=== PATIENT | female | born 1975 | race Hispanic/Latino ===

== ENCOUNTER 2017-10-27 13:50 | Inpatient (IN) | payer MEDICAID ==
[~2017-10-27] VITALS: Ht 147.3 cm; Wt 35.8 kg
[~2017-10-27 13:50] MED LIST: ASPI-1181 PO; ATOR20TA65 PO; CLOP75TA32 PO; DULO30CA51 PO; ISOS30TA11 PO; VENL-63 PO; ZOLP10TA6 PO
[2017-10-27 14:16] LABS: BASOPHILS % (AUTO) 0.4 % (0.0-5.0); EOSINOPHILS % (AUTO) 0.8 % (0.0-8.0); HEMATOCRIT 36.1 % (36-48); LYMPHOCYTES % (AUTO) 12.9 % (21.0-51.0); MEAN CORPUSCULAR HGB CONC 35.5 g/dL (32.0-36.0); MONOCYTES % (AUTO) 4.4 % (3.0-13.0); NEUTROPHILS % (AUTO) 81.5 % (40.0-77.0); NUCLEATED RED BLOOD CELLS 0.1 % (0.0-0.19); PLATELET COUNT (AUTO) 193 K/uL (130-400); RED BLOOD CELL COUNT(AUTO) 3.88 MIL/uL (4.00-5.50); RED CELL DISTRIBUTION WIDTH 16.3 % (11.0-15.5); WHITE BLOOD COUNT (AUTO) 5.6 K/uL (4.8-10.8)
[2017-10-27 14:29] LABS: INR 1.04 (0.85-1.15); PARTIAL THROMBOPLASTIN TIME 26.1 SEC (26.3-35.5); PROTHROMBIN TIME 10.9 SEC (9.6-11.6)
[2017-10-27 14:43] LABS: ALBUMIN 3.7 g/dL (3.5-5.0); BILIRUBIN,TOTAL 1.1 mg/dL (0.2-1.0); CREATINE KINASE MB 1.1 ng/mL (0.5-3.6); CREATININE 0.6 mg/dL (0.5-1.5); TOTAL PROTEIN, SERUM 6.6 g/dL (6.0-8.3)
[2017-10-27 14:50] LABS: POTASSIUM 2.9 mmol/L (3.5-5.1)
[2017-10-27] MEDS ORDERED: NITROGLYCERIN 1GM/1 INCH PACKET TD ONE (16:18)
[2017-10-27] MEDS ORDERED: POTASSIUM CHLORIDE 10% ELIXIR 20 MEQ/15 ML UDCUP PO PRN (17:45)
[2017-10-27] MEDS ORDERED: LIDOCAINE HCL-MPF 1% 2ML VIAL IJ PRN (17:45)
[2017-10-27] MEDS ORDERED: POTASSIUM CHLORIDE 20MEQ/100ML 100 ML IV PRN (17:45)
[2017-10-27] MEDS ORDERED: POTASSIUM CHLORIDE 20 MEQ ERTAB PO PRN (17:45)
[2017-10-27] MEDS: NITROGLYCERIN 1GM/1 INCH PACKET TD SCH (18:00)
[2017-10-27] MEDS ORDERED: REGADENOSON 0.4 MG/5 ML PF SYG IVP SCH (18:00)
[2017-10-27] MEDS ORDERED: POTASSIUM CHLORIDE 20 MEQ ERTAB PO ONE (20:58)
[2017-10-27] MEDS ORDERED: ENOXAPARIN SODIUM 40 MG/0.4 ML SYRINGE SQ SCH (21:00)
[2017-10-27] MEDS ORDERED: POTASSIUM CHLORIDE 20MEQ/100ML 100 ML IV ONE (21:28)
[2017-10-27 23:05] LABS: CREATINE KINASE MB 0.8 ng/mL (0.5-3.6); CREATINE KINASE, TOTAL 57 U/L (21-232); MYOGLOBIN 31 ng/mL (10-92); TROPONIN I < 0.04 ng/mL (0.00-0.06)
[2017-10-27 23:42] VITALS: BP 100/61
[2017-10-27] MEDS ORDERED: POTASSIUM CHLORIDE 10 MEQ/TAB.SA PO ONE ×2 (23:59)
[2017-10-28] MEDS ORDERED: SODIUM CHLORIDE 0.9% 250 ML IV ONE (00:50)
[2017-10-28] MEDS: NITROGLYCERIN 1GM/1 INCH PACKET TD SCH ×2 (01:02→06:28)
[2017-10-28 03:30] VITALS: BP 89/55
[2017-10-28 03:55] LABS: BASOPHILS % (AUTO) 0.3 % (0.0-5.0); EOSINOPHILS % (AUTO) 2.2 % (0.0-8.0); HEMATOCRIT 33.1 % (36-48); LYMPHOCYTES % (AUTO) 38.5 % (21.0-51.0); MEAN CORPUSCULAR HEMOGLOBIN 32.1 pg (27.0-33.0); MEAN CORPUSCULAR HGB CONC 34.2 g/dL (32.0-36.0); MEAN CORPUSCULAR VOLUME 93.8 fL (79-99); MONOCYTES % (AUTO) 11.5 % (3.0-13.0); NEUTROPHILS % (AUTO) 47.5 % (40.0-77.0); NUCLEATED RED BLOOD CELLS 0.1 % (0.0-0.19); PLATELET COUNT (AUTO) 175 K/uL (130-400); RED BLOOD CELL COUNT(AUTO) 3.53 MIL/uL (4.00-5.50); RED CELL DISTRIBUTION WIDTH 16.3 % (11.0-15.5); WHITE BLOOD COUNT (AUTO) 3.1 K/uL (4.8-10.8)
[2017-10-28 04:22] LABS: CARBON DIOXIDE 23 mmol/L (21-32); CHLORIDE 105 mmol/L (101-111); CHOLESTEROL 127 mg/dL (<200); CREATINE KINASE MB 0.7 ng/mL (0.5-3.6); CREATINE KINASE, TOTAL 43 U/L (21-232); CREATININE 0.7 mg/dL (0.5-1.5); GLOMERULAR FILTR. RATE CALC 97 mL/min (>60); GLUCOSE,RANDOM 86 mg/dL (70-105); HDL CHOLESTEROL 48 mg/dL (35-85); LDL DIRECT 76 mg/dL (0-99); MYOGLOBIN 22 ng/mL (10-92); POTASSIUM 3.8 mmol/L (3.5-5.1); SODIUM SERUM 138 mmol/L (136-145); THYROID STIMULATING HORMONE 1.43 uIU/mL (0.36-3.74); TRIGLYCERIDES 81 mg/dL (30-200); TROPONIN I < 0.04 ng/mL (0.00-0.06); UREA NITROGEN, BLOOD 9 mg/dL (7-18)
[2017-10-28] MEDS ORDERED: OLAN15TA18 PO (05:45)
[2017-10-28] MEDS ORDERED: DULO60CA63 PO (05:45)
[2017-10-28] MEDS ORDERED: CLON0.5T12 PO (05:45)
[2017-10-28] MEDS ORDERED: ISOS10TA8 PO (05:57)
[2017-10-28] MEDS ORDERED: ISOS30TA6 PO (05:58)
[2017-10-28 07:00] VITALS: BP 83/46
[2017-10-28] MEDS ORDERED: CLOPIDOGREL BISULFATE 75 MG TAB PO SCH (09:00)
[2017-10-28] MEDS ORDERED: CLONAZEPAM 0.5 MG TABLET PO SCH (09:00)
[2017-10-28] MEDS ORDERED: ISOSORBIDE MONO 30MG TAB SR PO SCH ×2 (09:00→10:30)
[2017-10-28] MEDS ORDERED: OLANZAPINE 5 MG TAB PO SCH (09:00)
[2017-10-28] MEDS ORDERED: ASPIRIN 325 MG TABLET PO SCH (09:00)
[2017-10-28] MEDS ORDERED: DULOXETINE HCL 30 MG CAP PO SCH (09:00)
[2017-10-28] MEDS ORDERED: PANTOPRAZOLE SODIUM 40 MG TABLET.DR PO SCH (09:30)
[2017-10-28 11:00] VITALS: BP 95/56
[2017-10-28] MEDS ORDERED: REGADENOSON 0.4 MG/5 ML PF SYG IVP SCH (14:00)
[2017-10-28 16:30] VITALS: BP 106/72
[2017-10-28 18:24] LABS: HEMATOCRIT 34.8 % (36-48); MEAN CORPUSCULAR HEMOGLOBIN 31.6 pg (27.0-33.0); MEAN CORPUSCULAR HGB CONC 33.8 g/dL (32.0-36.0); MEAN CORPUSCULAR VOLUME 93.3 fL (79-99); PLATELET COUNT (AUTO) 189 K/uL (130-400); RED BLOOD CELL COUNT(AUTO) 3.73 MIL/uL (4.00-5.50); RED CELL DISTRIBUTION WIDTH 16.5 % (11.0-15.5); WHITE BLOOD COUNT (AUTO) 3.8 K/uL (4.8-10.8)
[2017-10-28] MEDS ORDERED: FAMOTIDINE/PF 20 MG/2 ML VIAL IV SCH (21:00)
[2017-10-28] MEDS ORDERED: ATORVASTATIN CALCIUM 20 MG TABLET PO SCH ×2 (21:00)
[2017-10-29] MEDS ORDERED: ISOSORBIDE MONO 30MG TAB SR PO SCH (09:00)
== END 2017-10-28 19:40 | disposition left against medical advice (07) | DRG 198 ==
LOC: EDH 13:50 → EDHIP 13:51 → 2DH 23:39
PROVIDERS: ADMIT Family Medicine; ATTEND Family Medicine
DX: I25.119 Atherosclerotic heart disease of native coronary artery with unspecified angina pectoris (principal); K92.0 Hematemesis; E78.5 Hyperlipidemia, unspecified; I10 Essential (primary) hypertension; E87.6 Hypokalemia; F31.9 Bipolar disorder, unspecified; I73.9 Peripheral vascular disease, unspecified; M94.0 Chondrocostal junction syndrome [Tietze]; Z72.0 Tobacco use; Z91.14 Patient's other noncompliance with medication regimen; Z95.1 Presence of aortocoronary bypass graft; Z98.82 Breast implant status; Z91.040 Latex allergy status
CPT/HCPCS: 36415; 71045; 78452; 80048; 80053; 80061; 82550; 82553; 83735; 83874; 83880; 84132; 84439; 84443; 84484; 85025; 85027; 85610; 85730; 93005; 93017; 93306; 96374; A9500; J1650; J2785; J3480; J3490; J7030

== ENCOUNTER → 2017-11-16 | Outpatient (CLI) | payer MEDICAID ==
[~2017-11-16] MED LIST changes: +CLON0.5T12 PO; -DULO30CA51 PO; +DULO60CA63 PO; +IOPAMIDOL-370 100 ML VIAL IV ONE; +IOPAMIDOL-370 75 ML VIAL IV ONE; -ISOS30TA11 PO; +ISOS30TA6 PO; +OLAN15TA18 PO; +OMEP20CA10 PO; +ONDA4TAB4 PO; -VENL-63 PO; -ZOLP10TA6 PO
== END | disposition home or self-care (01) ==
LOC: OIH 09:22
PROVIDERS: ATTEND Internal Medicine Cardiovascular Disease
DX: I73.9 Peripheral vascular disease, unspecified (principal); I86.2 Pelvic varices; I70.90 Unspecified atherosclerosis
CPT/HCPCS: 75635; Q9967 ×2

== ENCOUNTER 2017-11-30 11:45 | Inpatient (IN) | payer MEDICAID ==
[~2017-11-30] VITALS: Ht 147.3 cm; Wt 40.1 kg
[~2017-11-30 11:45] MED LIST changes: -ATOR20TA65 PO; -CLON0.5T12 PO; -IOPAMIDOL-370 100 ML VIAL IV ONE; -IOPAMIDOL-370 75 ML VIAL IV ONE; -OMEP20CA10 PO; -ONDA4TAB4 PO
[2017-11-30 12:37] LABS: BASOPHILS % (AUTO) 0.8 % (0.0-5.0); EOSINOPHILS % (AUTO) 1.3 % (0.0-8.0); HEMATOCRIT 37.6 % (36-48); LYMPHOCYTES % (AUTO) 23.3 % (21.0-51.0); MEAN CORPUSCULAR HGB CONC 33.8 g/dL (32.0-36.0); MEAN CORPUSCULAR VOLUME 94.6 fL (79-99); MONOCYTES % (AUTO) 6.7 % (3.0-13.0); NEUTROPHILS % (AUTO) 67.9 % (40.0-77.0); PLATELET COUNT (AUTO) 229 K/uL (130-400); RED BLOOD CELL COUNT(AUTO) 3.98 MIL/uL (4.00-5.50); RED CELL DISTRIBUTION WIDTH 16.5 % (11.0-15.5); WHITE BLOOD COUNT (AUTO) 6.4 K/uL (4.8-10.8)
[2017-11-30 12:40] VITALS: BP 97/62
[2017-11-30 12:48] LABS: INR 0.97 (0.85-1.15); PARTIAL THROMBOPLASTIN TIME 26.2 SEC (26.3-35.5); PROTHROMBIN TIME 10.2 SEC (9.6-11.6)
[2017-11-30] MEDS ORDERED: OMEP20CA10 PO (12:52)
[2017-11-30] MEDS ORDERED: ATOR20TA65 PO (12:52)
[2017-11-30] MEDS ORDERED: ONDA4TAB4 PO (12:52)
[2017-11-30 12:55] LABS: ALBUMIN 3.8 g/dL (3.5-5.0); BILIRUBIN,TOTAL 0.5 mg/dL (0.2-1.0); CREATININE 0.7 mg/dL (0.5-1.5); POTASSIUM 3.7 mmol/L (3.5-5.1); TOTAL PROTEIN, SERUM 7.4 g/dL (6.0-8.3)
[2017-11-30 13:01] LABS: PLATELET FUNCTION ANALYSIS EPI 90 SEC (55-192)
[2017-11-30 13:02] LABS: HEMATOCRIT 37.3 % (36-48); PLATELET COUNT (AUTO) 229 K/uL (130-400)
[2017-11-30 13:11] LABS: HEMOGLOBIN A1C 5.6 % (4.0-6.0)
[2017-12-01] VITALS (22 sets, daily range): BP systolic 84–160; BP diastolic 49–75
[2017-12-01] MEDS: CEFUROXIME SODIUM 1.5 GM VIAL IVP SCH ×3 (05:00→21:01)
[2017-12-01] MEDS ORDERED: SODIUM CHLORIDE 0.9% 1000ML 1,000 ML IV ONE (09:06)
[2017-12-01] MEDS ORDERED: PROPOFOL 10 MG/ML 20ML VIAL IV ONE (10:40)
[2017-12-01] MEDS ORDERED: MIDAZOLAM HCL 1 MG/ML 2ML VIAL ONE (10:40)
[2017-12-01] MEDS ORDERED: FENTANYL CITRATE PF 50 MCG/1 ML 2ML VIAL ONE (10:40)
[2017-12-01] MEDS ORDERED: BACITRACIN 50,000 UNIT VIAL ONE (10:43)
[2017-12-01] MEDS ORDERED: EPHEDRINE SULFATE 50 MG/ML AMPULE ONE (12:01)
[2017-12-01] MEDS ORDERED: OCTYL 2-CYANOACRYLATE 1 EACH TP ONE (12:53)
[2017-12-01] MEDS ORDERED: THROMBIN-JMI 5000 UNIT/VIAL TP ONE (12:58)
[2017-12-01] MEDS ORDERED: TRAMADOL HCL 50 MG TABLET PO PRN (13:00)
[2017-12-01] MEDS ORDERED: ACETAMINOPHEN 325 MG TAB PO PRN ×2 (13:00)
[2017-12-01] MEDS ORDERED: MAGNESIUM HYDROXIDE 30 ML/UDCUP PO PRN (13:00)
[2017-12-01] MEDS ORDERED: MEPERIDINE-PF 50 MG/ML SYG ONE ×2 (14:26→14:45)
[2017-12-01] MEDS: TRAMADOL HCL 50 MG TABLET PO PRN (17:07)
[2017-12-01] MEDS ORDERED: CEFUROXIME 1.5GM+NS 100ML 100 ML IV SCH (21:00)
[2017-12-01] MEDS: OLANZAPINE 5 MG TAB PO SCH (21:01)
[2017-12-01] MEDS: DULOXETINE HCL 30 MG CAP PO SCH (21:01)
[2017-12-01] MEDS ORDERED: HYDROCODONE/ACETAMINOPHEN 5/325 MG TAB ONE (22:18)
[2017-12-02 03:46] LABS: HEMATOCRIT 26.8 % (36-48); MEAN CORPUSCULAR HEMOGLOBIN 32.2 pg (27.0-33.0); MEAN CORPUSCULAR HGB CONC 34.2 g/dL (32.0-36.0); MEAN CORPUSCULAR VOLUME 94.3 fL (79-99); PLATELET COUNT (AUTO) 162 K/uL (130-400); RED BLOOD CELL COUNT(AUTO) 2.84 MIL/uL (4.00-5.50); RED CELL DISTRIBUTION WIDTH 16.6 % (11.0-15.5); WHITE BLOOD COUNT (AUTO) 7.5 K/uL (4.8-10.8)
[2017-12-02 03:59] VITALS: BP 90/50
[2017-12-02 04:13] LABS: CREATININE 0.6 mg/dL (0.5-1.5); POTASSIUM 3.7 mmol/L (3.5-5.1)
[2017-12-02] MEDS: HYDROCODONE/ACETAMINOPHEN 5/325 MG TAB PO PRN ×2 (06:25→14:40)
[2017-12-02 08:07] VITALS: BP 97/63
[2017-12-02] MEDS: ATORVASTATIN CALCIUM 20 MG TABLET PO SCH (09:22)
[2017-12-02] MEDS: CLOPIDOGREL BISULFATE 75 MG TAB PO SCH (09:23)
[2017-12-02] MEDS: ASPIRIN 81 MG EC TAB PO SCH (09:23)
[2017-12-02] MEDS: CEFUROXIME SODIUM 1.5 GM VIAL IVP SCH ×2 (09:23→21:47)
[2017-12-02] MEDS: PANTOPRAZOLE SODIUM 40 MG TABLET.DR PO SCH (09:23)
[2017-12-02 12:13] VITALS: BP 101/69
[2017-12-02 16:00] VITALS: BP 112/75
[2017-12-02 19:17] VITALS: BP 109/75
[2017-12-02] MEDS: DULOXETINE HCL 30 MG CAP PO SCH (21:48)
[2017-12-02] MEDS: OLANZAPINE 5 MG TAB PO SCH (21:48)
[2017-12-03 00:06] VITALS: BP 94/57
[2017-12-03 03:45] VITALS: BP 93/52
[2017-12-03 04:38] LABS: HEMATOCRIT 24.3 % (36-48)
[2017-12-03 08:26] VITALS: BP 93/53
[2017-12-03] MEDS: ATORVASTATIN CALCIUM 20 MG TABLET PO SCH (09:13)
[2017-12-03] MEDS: PANTOPRAZOLE SODIUM 40 MG TABLET.DR PO SCH (09:13)
[2017-12-03] MEDS: ASPIRIN 81 MG EC TAB PO SCH (09:13)
[2017-12-03] MEDS: CLOPIDOGREL BISULFATE 75 MG TAB PO SCH (09:13)
[2017-12-03 12:01] VITALS: BP 101/68
[2017-12-03] MEDS: TRAMADOL HCL 50 MG TABLET PO PRN (16:00)
== END 2017-12-03 18:26 | disposition home or self-care (01) | DRG 181 ==
LOC: EDSTATUS 11:45 → DAHIP 12-01 08:07 → 2CH 12-01 15:40 → 2DH 12-01 17:12
PROVIDERS: ADMIT Family Medicine; ATTEND Family Medicine
PROC: 041L0ZL Bypass Left Femoral Artery to Popliteal Artery, Open Approach (ICD-10-PCS; principal; 2017-12-01 11:49)
DX: I70.212 Atherosclerosis of native arteries of extremities with intermittent claudication, left leg (principal); I74.09 Other arterial embolism and thrombosis of abdominal aorta; D64.9 Anemia, unspecified; E78.5 Hyperlipidemia, unspecified; I10 Essential (primary) hypertension; J45.909 Unspecified asthma, uncomplicated; Z79.02 Long term (current) use of antithrombotics/antiplatelets; Z79.82 Long term (current) use of aspirin; Z82.49 Family history of ischemic heart disease and other diseases of the circulatory system; Z95.5 Presence of coronary angioplasty implant and graft; Z91.040 Latex allergy status
CPT/HCPCS: 36415; 71046; 80048; 80053; 83036; 84703; 85014; 85018; 85025; 85027; 85576; 85610; 85730; 86850; 86900; 86901; 86922; 93005; 97039; A4218; A4344; C1768; J0697; J1644; J2175; J2250; J2704; J3010; J3490; J7030; J7040

== ENCOUNTER 2017-12-09 18:27 | Emergency (ER) | payer MEDICAID ==
[~2017-12-09 18:27] MED LIST changes: +ATOR20TA65 PO; +OMEP20CA10 PO; +ONDA4TAB4 PO
== END 2017-12-09 22:26 | disposition home or self-care (01) ==
LOC: EDH 18:27
DX: S80.12XA Contusion of left lower leg, initial encounter (principal); R60.0 Localized edema; I10 Essential (primary) hypertension; F31.9 Bipolar disorder, unspecified; Z91.040 Latex allergy status; X58.XXXA Exposure to other specified factors, initial encounter; Y93.89 Activity, other specified; Y92.89 Other specified places as the place of occurrence of the external cause; Y99.8 Other external cause status
CPT/HCPCS: 93971

== ENCOUNTER → 2017-12-14 | Outpatient (CLI) | payer MEDICAID | END | disposition home or self-care (01) | LOC: RAH 13:15 | PROVIDERS: ATTEND Thoracic Surgery (Cardiothoracic Vascular Surgery) | DX: I65.23 Occlusion and stenosis of bilateral carotid arteries (principal) | CPT/HCPCS: 93880 ==

== ENCOUNTER 2017-12-16 07:23 | Day surgery (SDC) | payer MEDICAID ==
[~2017-12-16] VITALS: Ht 149.9 cm; Wt 35.5 kg
[~2017-12-16 07:23] MED LIST changes: +SODIUM CHLORIDE 0.9% 1000ML 1,000 ML IV ONE
[2017-12-16 08:11] VITALS: BP 187/50
[2017-12-16 09:40] VITALS: BP 75/35
[2017-12-16 09:46] VITALS: BP 75/35
== END 2017-12-16 11:55 | disposition home or self-care (01) ==
LOC: DAH 07:23 → ENDO 07:23
PROVIDERS: ATTEND Internal Medicine
DX: K29.50 Unspecified chronic gastritis without bleeding (principal); K21.9 Gastro-esophageal reflux disease without esophagitis; I10 Essential (primary) hypertension; F41.9 Anxiety disorder, unspecified; J45.909 Unspecified asthma, uncomplicated; Z86.73 Personal history of transient ischemic attack (TIA), and cerebral infarction without residual deficits; I25.10 Atherosclerotic heart disease of native coronary artery without angina pectoris; E78.5 Hyperlipidemia, unspecified; Z95.5 Presence of coronary angioplasty implant and graft; Z98.890 Other specified postprocedural states; Z79.899 Other long term (current) drug therapy; I21.3 ST elevation (STEMI) myocardial infarction of unspecified site
CPT/HCPCS: 36415; 43239; 84703; 93005; A4606; J7030

== ENCOUNTER 2018-05-30 10:32 | Emergency (ER) | payer MEDICAID ==
[~2018-05-30 10:32] MED LIST changes: -SODIUM CHLORIDE 0.9% 1000ML 1,000 ML IV ONE
[2018-05-30] MEDS ORDERED: ASPIRIN 325 MG TABLET ONE (10:41)
[2018-05-30] MEDS ORDERED: KETOROLAC TROMETHAMINE 30MG/ML ONE (10:41)
== END 2018-05-30 10:59 | disposition home or self-care (01) ==
LOC: EDH 10:32
DX: M79.605 Pain in left leg (principal); R20.0 Anesthesia of skin; F31.9 Bipolar disorder, unspecified; I10 Essential (primary) hypertension; Z76.5 Malingerer [conscious simulation]; Z98.890 Other specified postprocedural states; Z91.040 Latex allergy status
CPT/HCPCS: 99281; J1885

== ENCOUNTER → 2018-10-25 | Outpatient (CLI) | payer MEDICAID | END | disposition home or self-care (01) | LOC: SHCH 10:32 | PROVIDERS: ATTEND Internal Medicine Cardiovascular Disease | DX: I73.9 Peripheral vascular disease, unspecified (principal) | CPT/HCPCS: 93930 ==

== ENCOUNTER → 2019-04-03 | Outpatient (CLI) | payer MEDICAID ==
[~2019-04-03] MED LIST changes: -DULO60CA63 PO; +DULO60CA64 PO; +OMEP-50 PO; -OMEP20CA10 PO
== END | disposition home or self-care (01) ==
LOC: RAH 09:55
PROVIDERS: ATTEND Internal Medicine Cardiovascular Disease
DX: R06.00 Dyspnea, unspecified (principal)
CPT/HCPCS: 93306

== ENCOUNTER → 2019-04-05 | Outpatient (CLI) | payer MEDICAID ==
[~2019-04-05] MED LIST changes: +REGADENOSON 0.4 MG/5 ML PF SYG IVP SCH
== END | disposition home or self-care (01) ==
LOC: SHCH 09:15
PROVIDERS: ATTEND Internal Medicine Cardiovascular Disease
DX: I10 Essential (primary) hypertension (principal); R06.02 Shortness of breath
CPT/HCPCS: 78452; 93017; 96374; A9500 ×2; J2785

== ENCOUNTER → 2019-09-27 | Outpatient (CLI) | payer MEDICAID ==
[~2019-09-27] MED LIST changes: +IOHEXOL 350 MG/ML 100ML INFUS..BTL IV ONE; +IOHEXOL-350 50ML VIAL IV ONE; -OMEP-50 PO; +OMEP20CA12 PO; -REGADENOSON 0.4 MG/5 ML PF SYG IVP SCH
== END | disposition home or self-care (01) ==
LOC: RAH 08:35
PROVIDERS: ATTEND Thoracic Surgery (Cardiothoracic Vascular Surgery)
DX: I74.5 Embolism and thrombosis of iliac artery (principal); I73.9 Peripheral vascular disease, unspecified
CPT/HCPCS: 75635; Q9967 ×2

== ENCOUNTER → 2020-08-19 | Outpatient (CLI) | payer MEDICAID ==
[~2020-08-19] MED LIST changes: -ASPI-1181 PO; +ASPI-1443 PO; -IOHEXOL 350 MG/ML 100ML INFUS..BTL IV ONE; -IOHEXOL-350 50ML VIAL IV ONE; -ISOS30TA6 PO; +ISOS30TA92 PO
== END | disposition home or self-care (01) ==
LOC: RAH 10:47
PROVIDERS: ATTEND Physical Medicine & Rehabilitation
DX: M50.30 Other cervical disc degeneration, unspecified cervical region (principal)
CPT/HCPCS: 72040

== ENCOUNTER → 2023-10-11 | Outpatient (CLI) | payer MEDICAID ==
[~2023-10-11] MED LIST changes: +APIX2.5T PO; +ARIP2TAB20 PO; +CILO50TA2 PO; +CLON0.5T4 PO; -OLAN15TA18 PO; +OLAN15TA36 PO
== END | disposition home or self-care (01) ==
LOC: SHCH 08:20
PROVIDERS: ATTEND Internal Medicine Cardiovascular Disease
DX: I65.23 Occlusion and stenosis of bilateral carotid arteries (principal); I34.81 Nonrheumatic mitral (valve) annulus calcification; I70.0 Atherosclerosis of aorta; I71.40 Abdominal aortic aneurysm, without rupture, unspecified; I51.7 Cardiomegaly
CPT/HCPCS: 93306; 93880; 93978